=== PATIENT | female | born 1960 ===

== ENCOUNTER 2025-01-24 19:12 | Emergency (ER) | payer SELFPAY ==
[~2025-01-24] VITALS: Ht 167.6 cm; Wt 86.6 kg
[2025-01-24] MEDS ORDERED: Ketorolac Tromethamine 15mg Vial IM ONE (20:50)
== END 2025-01-24 21:10 | disposition home or self-care (01) ==
LOC: ER 19:12
DX: M25.562 Pain in left knee (principal); Z88.8 Allergy status to other drugs, medicaments and biological substances
CPT/HCPCS: 73502; 73562-LT; 73590; 96372; 99283-25; J1885